=== PATIENT | female | born 1925 | race Caucasian/White ===

== ENCOUNTER 2016-06-09 14:29 | Emergency (ER) | payer OTHER ==
[~2016-06-09] VITALS: Ht 149.9 cm; Wt 81.7 kg
[~2016-06-09 14:29] MED LIST: ACETAMINOPHEN-1 EAC1 PO; ADULT LOW DOSE81 MG PO; AMOXICILLIN125 MG; ARICEPT 5 MG TAB5 MG PO; ARICEPT10 M1 PO; ASPIR 8181 MG PO; ASPIRIN EC81 M1 PO; ASPIRIN325 PO; BETIMOL10 ML OPHTHALMIC; BISACODYL SUPP10 MG RECTAL; BISOPROLOL FUM2.5 MG; CIPRO250 M1 PO; COUMADIN 1MG TAB1 M1; COUMADIN 3 MG TA3 MG NG; COUMADIN 3 MG TA3 MG PO; DEXILANT60 MG PO; DIAZEPAM 5 MG5 M1 OR; DIAZEPAM 5 MG5 M1 PO; ENEMA BOTTLE1 EACH MC; HYDROCHLOROTH12.5 M1 PO; HYDROCHLOROTHIA25 M1 PO; HYDROCHLOROTHIA25 M2 PO; HYDROCHLOROTHIA50 MG PO; HYDROXYZINE HCL25 M1 PO; IMDUR 30 MG TAB30 M1 PO; ISOSORBIDE MONO30 M1 PO; LEVOTHYROXIN0.125 M1 PO; LEVOTHYROXIN0.137 M1 PO; LIDODERM 5%1 PATC1 TRANSDERM; LIDODERM 5%1 PATCH TRANSDERM; LIDODERM TP; LIPITOR 20 MG T20 M1 PO; MACROBID 100 M100 M2 PO; MAVIK1 MG; MAVIK4 MG PO; MILK OF MA2400 MG/10 PO; MIRALAX17 GM PO; NORCO 5-325 TA1 EACH PO; NORVASC5 MG PO; OMEPRAZOLE40 MG PO; PACERONE 200 M200 M1 PO; PACERONE100 MG PO; PAXIL10 MG; PERCOCET PO; PLAVIX 75 MG TA75 M1 PO; PRILOSEC 10MG C10 MG PO; PRIMADONE OR; PRIMIDONE50 MG PO; PROLOPRIM100 MG PO; SYNTHROID125 MCG PO; TIMOLOL; TIMOLOL MA0.5 %/5 M2 OPHTHALMIC; TRANDOLAPRIL4 MG PO; TYLENOL #3 OR; VITAMIN D35000 UNIT PO
[2016-06-09] MEDS ORDERED: ACETAMINOPHEN-1 EAC1 PO (15:41)
== END 2016-06-09 16:37 | disposition home or self-care (01) ==
LOC: ER 14:29
DX: S20.212A Contusion of left front wall of thorax, initial encounter (principal); I48.91 Unspecified atrial fibrillation; Z88.8 Allergy status to other drugs, medicaments and biological substances; W07.XXXA Fall from chair, initial encounter; Y93.89 Activity, other specified; Y92.89 Other specified places as the place of occurrence of the external cause; Y99.8 Other external cause status

== ENCOUNTER 2016-07-31 14:26 | Inpatient (IN) | payer OTHER ==
[~2016-07-31] VITALS: Ht 149.9 cm; Wt 89.4 kg
--- NOTE | ~2016-07-31 | HC ---
[facility] [place] [address] CONSULTATION Name: TOM VIDALESSA Room #: 303-P [facility] IN M.R.#: [id number] Admission: 07/31/16 Attend Phys: Bubba Pop MD Discharge: 08/02/16 Date of : [birth year] Report #: [id number] THIS REPORT FOR: //name// CC: Bubba Pop DATE OF SERVICE: 08/01/2016 HISTORY OF PRESENT ILLNESS: The patient is an 89-year-old white female who lives in an assisted living facility, was independent with ambulation, could shower and dress herself. She had the onset of inability to walk with bilateral lower extremity weakness. She was thought to may have had a small TIA, especially in light of her atrial fibrillation and not able to take anticoagulation. She also has urinary tract infection, chronic recurrent. She was started on IV antibiotics. With a TIA, the orders were to resume her Plavix. We are seeing her in rehabilitation medicine consultation. PAST MEDICAL HISTORY: Atrial fibrillation, chronic low back pain. She has had prior cervical spine surgery and has had lumbar disk surgery. There is a note of some mild dementia, history of a prior CVA, hypothyroidism, hypertension, reflux. MEDICATIONS: Please see the full medication listing. ALLERGIES: NITROGLYCERIN. SOCIAL HISTORY: Nonsmoker, no recreational drugs. No alcohol. She lives in an assisted living facility and has been doing quite well as noted above with her functional mobility and ADLs. The assisted living facility staff gave her medications. There are 2 involved daughters here. REVIEW OF SYSTEMS: No complaints of chest pain, shortness of breath, abdominal discomfort. No fever, chills. No headache. No current extremity pain complaints. She does have chronic low back pain. PHYSICAL EXAMINATION: GENERAL: An 89-year-old white female in no obvious distress. The patient is alert, pleasant. VITAL SIGNS: Last recorded temperature 97.7, pulse 72, respirations 16, blood pressure 146/88. HEENT: Appeared to be benign. NEUROLOGIC: Cranial nerves grossly intact. Facies are symmetric. She has functional range of motion of both upper extremities with strength grade 4/5. DTRs are trace to 1. In her lower extremities, no focal calf swelling, functional range of motion with strength grade 4-/5. DTRs are trace to 1. Tone appeared to be intact. Proprioception appeared reasonably intact, right large toe. She is min assist with sit to stand. She did ambulate 70 feet contact [facility] [address] [place] [address] CONSULTATION Name: TOM VIDALES [place] Room #: 303-P DIS IN ..#: [id number] Admission: 07/31/16 Attend Phys: Bubba Pop MD Discharge: 08/02/16 Date of : [birth year] Report #: [id number] guard with a front-wheeled walker. ASSESSMENT: An 89-year-old white female with the following problem list: 1. Bilateral lower extremity weakness, which may have been a small transient ischemic attack or cerebrovascular accident. She has been restarted on her Plavix. She does have atrial fibrillation and is not able to take anticoagulation. 2. Urinary tract infection, which is chronic and recurrent. 3. Atrial fibrillation. Continuing on the amiodarone. 4. Hypertension. 5. Hypothyroidism. 6. History of some dementia, continuing on Aricept. 7. Past history of lumbar laminectomy with chronic low back pain. PLAN: Therapies are working with her and we will see how she progresses. We are following regarding potential acute inpatient rehabilitation as warranted. At this point, we will follow along with you and be glad to assist as indicated. Discussion was held with the patient and her 2 daughters. <ELECTRONICALLY SIGNED> By: Bryson Pool MD 08/02/16 1534 1608 1950 Bryson Pool MD /nt
--- NOTE | ~2016-07-31 | H ---
[facility] [place] [address] HISTORY AND PHYSICAL Name: TOM VIDALES [place] Room #: 303-P ADM IN M.R.#: [id number] Admission: 07/31/16 Attend Phys: Bubba Pop MD Discharge: Date of : [birth year] Report #: [id number] THIS REPORT FOR: //name// CC: Bubba Pop DATE OF SERVICE: 08/01/2016 DATE OF ADMISSION: 07/31/2016 CHIEF COMPLAINT: Weakness. HISTORY OF PRESENT ILLNESS: The patient is an 89-year-old female who was in an assisted living facility yesterday, but she states she just became unable to walk due to extremity weakness. She had been fine the day before per her daughter. She states that she just could not move her legs, it became very, very weak. She has no other focal symptoms. She denied any headaches or visual changes. No chest pain. PAST MEDICAL HISTORY: Significant for: 1. Atrial fibrillation. 2. Degenerative joint disease. 3. Back pain, chronic. 4. Mild dementia. 5. Hypothyroidism. 6. Prior CVA. 7. Hypertension. 8. Reflux. MEDICATIONS: Include primidone 100 mg b.i.d., Mavik 4 mg b.i.d., amiodarone 100 mg a day, Aricept 10 mg a day, Synthroid 137 mcg a day, Timolol drops daily, Plavix 75 mg a day, isosorbide mononitrate 30 mg a day, aspirin 81 mg a day, Colace suppository p.r.n., vitamin D3 daily, MiraLax daily, hydrochlorothiazide 25 mg a day, amlodipine 5 mg a day, Prilosec 40 mg b.i.d., Tylenol No. 3 p.r.n. pain. ALLERGIES: Are to NITROGLYCERIN and . SOCIAL HISTORY: She is a nonsmoker. No recreational drugs. No alcohol. She lives in assisted living. REVIEW OF SYSTEMS: CONSTITUTIONAL: No fever or chills. HEENT: No headaches or visual changes. CHEST: No chest pain, tightness in chest, short of breath, cough or sputum production. GASTROINTESTINAL: No nausea, vomiting, diarrhea or constipation. [facility] [address] [place] [address] HISTORY AND PHYSICAL Name: TOM VIDALES [place] Room #: 303-P [facility] IN M.R.#: [id number] Admission: 07/31/16 Attend Phys: Bubba Pop MD Discharge: Date of : [birth year] Report #: [id number] GENITOURINARY: No burning or frequency. She does have frequent UTIs. EXTREMITIES: Generalized weakness, no focal pain or swelling. SKIN: No rashes or wounds. NEUROLOGIC: No new numbness, but with generalized weakness. PHYSICAL EXAMINATION: VITAL SIGNS: Blood pressure 146/70, pulse is 90, respiratory rate 18. She is afebrile. GENERAL: She is awake, alert and reports she is feeling much better, not able to walk now. Her mucous membranes are moist. NECK: Supple without adenopathy, thyromegaly or bruits. CHEST: Clear to auscultation. CARDIOVASCULAR: Irregular rhythm at a rate of 80s. ABDOMEN: Obese, soft, no masses. Bowel sounds are active. EXTREMITIES: Pulses are intact. There is 1+ edema. SKIN: Turgor is intact. No rashes or wounds. NEUROLOGIC: She has equal strength and she has no numbness. PSYCHIATRIC: Mood is normal. DIAGNOSTIC DATA: EKG: AFib rate of 76, no ST segment changes. LABORATORY DATA: Sodium 143, potassium 5.2, chloride 109, bicarbonate 26, BUN 30, creatinine 1.6, glucose 114, calcium 8.4. Troponin 1.11. WBC is 8.9, hemoglobin 9.4, hematocrit 30.1, platelet count 343, segs 67, lymphs 19, bands 9, monocytes 10, urinalysis specific gravity of 1.020, pH 6.0 positive blood with 2 reds cells, white blood cells are moderate 16-25, many bacteria. Culture is pending. Chest x-ray shows no acute process. ASSESSMENT: 1. Generalized debility seems to be improved already. This may have been a small TIA, especially in light of her AFib and not able to take anticoagulation. 2. Urinary tract infection, chronic recurrent. We are going to start her on IV antibiotics for that. We will get a culture. We will start PT and OT for the weakness, likely we will need skilled placement as well. 3. Hypertension. Resume home meds. 4. With a TIA, resume Plavix. 5. Hypothyroidism, resume Synthroid. 6. Dementia, resume Aricept. 7. Atrial fibrillation. Continue the amiodarone. By: 0748 1103 Bubba Pop MD /nt
--- NOTE | ~2016-07-31 | EKG ---
[address] [address] ELECTROCARDIOGRAM REPORT Name: SOBEIDATOM SHERIF Room #: 303-P ADM IN M.R.#: [id number] Admission: 07/31/16 Attend Phys: Bubba Pop MD Discharge: Date of : [birth year] Report #: [id number] THIS REPORT FOR: //name// [facility] ED Test Date: 2016-07-31 Test Time: 15:33:36 Pat Name: TOM VIDALES Department: Room: [facility] Gender: F Cutch Cleaner: jose de jesus : 1925 Requested By: Efren Gonzalez Order Number: [id number] MD: Brent Van Measurements Intervals Garrett Rate: 76 P: [place]: QRS: -48 QRSD: 87 T: 74 QT: 403 QTc: 454 Interpretive Statements Atrial fibrillation Anterolateral infarct, age indeterminate Compared to ECG 12/20/2015 12:23:27 No significant changes Electronically Signed On 08-02-2016 9:46:37 CDT by Brent Van [email or web address] <ELECTRONICALLY SIGNED> By: Brent Van MD 08/02/16 0946 1533 153 Brent Van MD /SADE
[2016-07-31 14:27] VITALS: BP 146/70
[2016-07-31 15:39] LABS: ABSOLUTE NEUTROPHILS 5.7 thou/uL (1.4-8.2); BASOPHILS 1.7 % (0.0-2.0); EOSINOPHILS 1.6 % (0.0-3.0); HEMATOCRIT 30.1 % (37.0-47.0); HEMOGLOBIN 9.4 gm/dL (12.0-15.0); MCH 24.9 pg (26.0-34.0); MCHC 31.4 g/dL (28.0-37.0); MCV 79.2 fL (80.0-100.0); POLYS 67.7 % (36.0-66.0); WBC 8.9 thou/uL (4.0-11.0)
[2016-07-31 15:41] LABS: MANUAL DIFF NO
[2016-07-31 15:45] LABS: CALCIUM 8.4 mg/dL (8.5-10.1); CREATININE 1.6 mg/dL (0.6-1.0); POTASSIUM 5.2 mmol/L (3.5-5.1)
[2016-07-31 15:53] LABS: TROPONIN-I 0.11 ng/mL (<0.04-0.07)
[2016-07-31 15:57] LABS: PLATELET COUNT 343 thou/uL (150-400)
[2016-07-31 16:21] LABS: URINE BILIRUBIN NEGATIVE (Negative); URINE BLOOD TRACE (Negative); URINE COLOR YELLOW; URINE GLUCOSE-RANDOM* NEGATIVE (Negative); URINE KETONES NEGATIVE (Negative); URINE LEUKOCYTES-REFLEX 1+ (Negative); URINE PROTEIN (DIPSTICK) NEGATIVE (Negative); URINE UROBILINOGEN 0.2 E.U./dl (0.2-1.0)
[2016-07-31 16:33] LABS: SQUAMOUS >10 Many /LPF (0-3)
[2016-07-31 16:34] LABS: CASTS None Seen /LPF (None Seen); CRYSTALS None Seen /LPF (None Seen); URINE RBC 0-2 Rare /HPF (0-2)
[2016-07-31] MEDS ORDERED: ACETAMINOPHEN-1 EAC1 PO (17:24)
[2016-07-31 18:07] VITALS: BP 142/66
[2016-07-31 18:21] VITALS: BP 149/80
[2016-07-31 20:00] VITALS: BP 143/77
[2016-08-01] VITALS: BP 142/85
[2016-08-01 04:00] VITALS: BP 169/94
[2016-08-01 07:33] VITALS: BP 137/74
[2016-08-01 15:36] VITALS: BP 146/88
[2016-08-01 20:00] VITALS: BP 151/85
[2016-08-02 04:00] VITALS: BP 148/90
[2016-08-02 07:27] VITALS: BP 124/68
[2016-08-02 09:57] VITALS: BP 124/68
== END 2016-08-02 13:30 | DRG 69 ==
LOC: ER 14:26 → 3N 17:15 → EROBS 17:15 → 3N 18:29
PROVIDERS: Emergency Medicine
DX: G45.9 Transient cerebral ischemic attack, unspecified (principal); N39.0 Urinary tract infection, site not specified; I48.91 Unspecified atrial fibrillation; Z96.652 Presence of left artificial knee joint; G89.29 Other chronic pain; M54.5 Low back pain; F03.90 Unspecified dementia, unspecified severity, without behavioral disturbance, psychotic disturbance, mood disturbance, and anxiety; E03.9 Hypothyroidism, unspecified; I10 Essential (primary) hypertension; K21.9 Gastro-esophageal reflux disease without esophagitis; Z90.49 Acquired absence of other specified parts of digestive tract; Z90.710 Acquired absence of both cervix and uterus; Z90.722 Acquired absence of ovaries, bilateral; Z88.1 Allergy status to other antibiotic agents; Z86.73 Personal history of transient ischemic attack (TIA), and cerebral infarction without residual deficits; Z88.8 Allergy status to other drugs, medicaments and biological substances

== ENCOUNTER 2016-08-02 11:54 | Inpatient (IN) | payer OTHER ==
[~2016-08-02] VITALS: Ht 149.9 cm; Wt 87.5 kg
--- NOTE | ~2016-08-02 | H ---
[facility] [place] [address] [place] [address] HISTORY AND PHYSICAL Name: TOM VIDALES [place] Room #: 510-P [facility] IN M.R.#: [id number] Admission: 08/02/16 Attend Phys: Bryson Pool MD Discharge: 08/07/16 Date of : [birth year] Report #: [id number] THIS REPORT FOR: //name// CC: Bryson Pop DATE OF SERVICE: 08/02/2016 HISTORY OF PRESENT ILLNESS: The patient is an 89-year-old white female who lives in an assisted living facility. She was independent with ambulation, could shower and dress herself. She had the onset of inability to walk with bilateral lower extremity weakness. She was thought to maybe have had a small TIA, especially in light of her atrial fibrillation and not able to take anticoagulation. With the TIA, orders were to resume her Plavix. She also has a urinary tract infection, chronic recurrent and was started on IV antibiotics. She was noted to have significant functional mobility and ADL deficits and has been admitted for acute in-hospital inpatient rehabilitation. PAST MEDICAL HISTORY: Includes atrial fibrillation, chronic low back pain. She has had prior cervical spine surgery and has had lumbar disk surgery. There is a note of some mild dementia, history of a prior CVA, hypothyroidism, hypertension and reflux. MEDICATIONS: Please see the full medication listing. Each medication was individually reconciled upon admission. The medication list includes her medications plus vitamins, supplements, [id number], etc. ALLERGIES: NITROGLYCERIN. SOCIAL HISTORY: Nonsmoker, no recreational drugs. No alcohol. She lives in an assisted living facility and has been doing quite well as noted above with her functional mobility and ADLs. The assisted living facility staff gave her her medications. There are 2 involved daughters. REVIEW OF SYSTEMS: No complaints of chest pain, shortness of breath or abdominal discomfort. No fever or chills. She did not have any current pain complaints. She does have the chronic low back pain which is premorbid. PHYSICAL EXAMINATION: GENERAL: An 89-year-old white female in no obvious distress. She is alert and pleasant. VITAL SIGNS: Last recorded vitals, these are being taken on her admission to rehabilitation. HEENT: Appeared to be benign. CHEST: Sounded clear to auscultation. CARDIOVASCULAR: Regular rate and rhythm. [facility] [address] [place] [address] HISTORY AND PHYSICAL Name: TOM VIDALES [place] Room #: 510-P [facility] IN M.R.#: [id number] Admission: 08/02/16 Attend Phys: Bryson Pool MD Discharge: 08/07/16 Date of : [birth year] Report #: [id number] ABDOMEN: Bowel sounds positive, nontender. GENITOURINARY AND RECTAL: Deferred. NEUROLOGIC: Cranial nerves are grossly intact. Facies are symmetric. EXTREMITIES: She has functional range of motion of both upper extremities with strength grade 4/5. DTRs are trace to 1 in her lower extremities, no focal calf swelling. Functional range of motion with strength grade 4-/5. DTRs are trace to 1. Tone appeared to be intact. Proprioception appeared reasonably intact right large toe. She does need some assistance with basic functional mobility and ADLs, although she is starting to walk better with the 4-wheeled walker and appears to need less assistance than she needed prior to rehabilitation admission. ASSESSMENT: An 89-year-old white female with the following problem list: 1. Bilateral lower extremity weakness. This could have been a small transient ischemic attack per her attending physician. She was restarted on her Plavix. She does have atrial fibrillation and is not able to take full anticoagulation. 2. Urinary tract infection, chronic and recurrent. 3. Atrial fibrillation, continuing on amiodarone. 4. Hypertension. 5. Hypothyroidism. 6. History of some dementia, continuing on Aricept. 7. Past history of lumbar laminectomy with chronic low back pain. PLAN: The patient is admitted for an acute in-hospital inpatient rehabilitation stay. From a postadmission physician evaluation perspective, there are no relevant changes since the preadmission screening. Please see the above review of prior and current medical and functional conditions and comorbidities. Please see the patient's prior and current functional status. As far as risk of complication, she does have multiple medical comorbidities as noted above. Initial plan of care involves the interdisciplinary acute inpatient rehabilitation program with the goal of maximizing the patient's functional independence, so that she can hopefully return back to her prior living situation. Measurable functional goals would be for her to become modified independent with transfers, mobility and ADLs to the point where she can return back to her assisted living facility. Prognosis is reasonably good with estimated length of stay probably fairly short around 5-10 days pending progress. Potential barriers would include her multiple medical comorbidities and decreased functional status. The patient meets diagnostic criteria for an acute in-hospital inpatient rehabilitation stay. She meets medical necessity criteria and we will have the sap consultant physicians continue to follow while she is on rehabilitation. She [facility] [address] [place] [address] HISTORY AND PHYSICAL Name: TOM VIDALES [place] Room #: 510-P DIS IN M.R.#: [id number] Admission: 08/02/16 Attend Phys: Bryson Pool MD Discharge: 08/07/16 Date of : [birth year] Report #: [id number] does have the tolerance for an acute inpatient rehabilitation stay and has appropriate discharge goals back to the home setting. <ELECTRONICALLY SIGNED> By: Bryson Pool MD 08/08/16 1157 1426 1651 Bryson Pool MD /nt
--- NOTE | ~2016-08-02 | HC ---
[facility] [place] [address] CONSULTATION Name: TOM VIDALESSA Room #: 510-P [facility] IN M.R.#: [id number] Admission: 08/02/16 Attend Phys: Bryson Pool MD Discharge: 08/07/16 Date of : [birth year] Report #: [id number] THIS REPORT FOR: //name// CC: Bryson Pop DATE OF SERVICE: 08/05/2016 NEUROBEHAVIORAL STATUS EXAMINATION ATTENDING PHYSICIAN: Bryson Pool M.D. AEROSPACE QUALITY ENGINEER: Bubba Perdomo, PhD. CLINICAL PRESENTATION: The patient is an 89-year-old female who was living in an assisted living facility when she had a sudden onset of bilateral weakness in her legs causing for the fall to the floor. The patient did not strike her head and just lean back against the wall to slide to the ground. PAST MEDICAL HISTORY: Includes atrial fibrillation, chronic low back pain. She has had prior cervical spine and a lumbar disk surgery. She also carries diagnoses of urinary tract infection, atrial fibrillation, hypertension, hypothyroidism, lumbar laminectomy with chronic low back pain and a history of dementia. A complete description of her medical condition and history can be found in her medical record. Neuropsychological consultation was requested to provide assistance in the assessment of cognitive and emotional status and to provide recommendations and services. Prior to this most recent event, she stated that she was living in an assisted living facility. The patient had 8 children. She reports three children have . Her second in 2004. She is a high school graduate. 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 TECHNIQUES UTILIZED: Clinical interview, review of medical records, staff consultation and behavioral observation, mini mental status exam 2 standard version and clock drawing. EXAMINATION FINDINGS: The patient was alert and cooperative with the assessment. She accurately described the reason for her hospitalization. There is no evidence of aphasia. There is no report of auditory or visual hallucinations. Her mood is anxious. She indicates a desire to return to her assisted living facility as soon as possible. Her mood was irritable and she lacked insight into the need for her continued hospitalization. She describes her symptoms to include difficulty with sleep [facility] [address] [place] [address] CONSULTATION Name: TOM VIDALES [place] Room #: 510-P DIS IN M.R.#: [id number] Admission: 08/02/16 Attend Phys: Bryson Pool MD Discharge: 08/07/16 Date of : [birth year] Report #: [id number] and appetite and short-term memory. Her performance on the MMSE 2 brief version is in the mild range of impairment with a raw score of 13 of 16 and T score of 38. She was 3/3 for initial registration, 5/5 for orientation to time and 5/[address]. She was 0/3 for immediate recall of 3 items after a brief time delay and distraction. Her performance improved on the standard version of the MMSE 2 to a raw score of 25 and a T score of 44. She was 4/5 for serial 7's. The patient had difficulty in copying a simple geometric design. Clock drawing suggests some mild impairment in ability to set the hands at a designated time, suggesting an impairment with care home semantic memory. 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 RECOMMENDATIONS: Continued reassurance about her improvement in functioning and increased ability to manage with increased degree of independence. The use of relaxation techniques and use of visual aides, e.g., calendar, to assist in orientation. Most likely the change in her location and routine has contributed to the increased anxiety at this time. Thank you very much for allowing me to provide the consultation on this patient. <ELECTRONICALLY SIGNED> By: Bubba Perdomo, PhD 08/09/16 1806 1628 0014 Bubba Perdomo, PhD /nt
--- NOTE | ~2016-08-02 | PLAN ---
[facility] [place] [address] [place] [address] REHAB UNIT PLAN OF CARE Name: TOM VIDALES [place] Room #: 510-P [facility] IN M.R.#: [id number] Admission: 08/02/16 Attend Phys: Bryson Pool MD Discharge: 08/07/16 Date of : [birth year] Report #: [id number] THIS REPORT FOR: //name// CC: Bryson Pop DATE OF SERVICE: 08/04/2016 The patient is seen back today in followup. She is in no distress. Last recorded temperature 98.4, pulse 72, respirations 18, blood pressure 145/64. The patient is alert, pleasant. HEENT appeared to be benign. No focal calf swelling. Lower extremity strength does appear to be improved. Transfers have improved and upon discussion with physical therapy, she is now ready to be modified independent in the room with the walker. She has ambulated up to 300 feet contact guard with the front-wheeled walker. In occupational therapy, lower body dressing has been at a contact guard assist level. We are working in improving her strength and endurance. ASSESSMENT: 1. Bilateral lower extremity weakness. Question transient ischemic attack. 2. History of atrial fibrillation, not able to take full anticoagulation. Was restarted on her Plavix. 3. Urinary tract infection chronic and recurrent. 4. Atrial fibrillation, continuing on amiodarone. 5. Hypertension. 6. Hypothyroidism. 7. Some dementia premorbidly continuing on Aricept. 8. Past history of lumbar laminectomy with chronic low back pain. PLAN: The overall plan of care is based on the preadmission screen, post-admission physician evaluation and information garnered from therapy assessments. 1. Estimated length of stay will be short. I discussed the patient with the therapy team today. She is ready to be modified independent in the room today and we will be planning on her discharging back to her assisted living facility on Sunday. She is to work further in improving strength and endurance as well as functional ADLs, which she was doing premorbidly herself. 2. Medical prognosis is reasonably good. 3. Anticipated interventions includes the interdisciplinary acute inpatient rehabilitation program with PT and OT, rehab nursing assisting regarding medication management, skin care prophylaxis, bowel and bladder issues and nursing education. The otm consultant physicians are asked to continue following. We will have the interdisciplinary acute inpatient rehab team involved. 4. Anticipated functional outcomes would be for the patient to become modified independent with transfers, mobility and ADL[place] [address] REHAB UNIT PLAN OF CARE Name: TOM VIDALES [place] Room #: 510-P [facility] IN .R.#: [id number] Admission: 08/02/16 Attend Phys: Bryson Pool MD Discharge: 08/07/16 Date of : [birth year] Report #: [id number] 5. Discharge destination would be back to the home setting. This is in an assisted living facility. 6. Expected therapy by discipline includes PT and OT 1-1/2 hours per day each 5 days a week throughout the duration of the acute inpatient rehabilitation stay. Plan is for discharge home on Sunday to her assisted living facility. <ELECTRONICALLY SIGNED> By: Bryson Pool MD 08/08/16 1157 0942 1213 Bryson Pool MD /nt
[2016-08-02 14:34] VITALS: BP 114/49
[2016-08-03 05:25] VITALS: BP 156/82
[2016-08-03 05:42] LABS: HEMATOCRIT 33.3 % (37.0-47.0); HEMOGLOBIN 10.5 gm/dL (12.0-15.0); MCH 24.8 pg (26.0-34.0); MCHC 31.6 g/dL (28.0-37.0); MCV 78.5 fL (80.0-100.0); RBC 4.24 mil/uL (4.20-5.00); RDW 17.5 % (10.5-14.5); WBC 6.8 thou/uL (4.0-11.0)
[2016-08-03 05:53] LABS: CALCIUM 8.8 mg/dL (8.5-10.1); CREATININE 1.4 mg/dL (0.6-1.0); POTASSIUM 3.9 mmol/L (3.5-5.1)
[2016-08-03 16:11] VITALS: BP 99/57
[2016-08-04 05:42] VITALS: BP 145/64
[2016-08-04 10:00] VITALS: BP 107/56
[2016-08-04 15:54] VITALS: BP 98/62
[2016-08-04 16:00] VITALS: BP 104/73
[2016-08-05 05:34] VITALS: BP 146/65
[2016-08-05 09:21] VITALS: BP 129/72
[2016-08-05 16:26] VITALS: BP 101/54
[2016-08-06 04:28] VITALS: BP 144/74
[2016-08-06 15:44] VITALS: BP 104/60
[2016-08-06 21:00] VITALS: BP 120/60
[2016-08-07 03:55] VITALS: BP 155/84
[2016-08-07 10:08] VITALS: BP 118/71
[2016-08-07 12:08] VITALS: BP 118/71
== END 2016-08-07 15:30 | disposition home health service (06) | DRG 69 ==
PROVIDERS: Physical Medicine & Rehabilitation
DX: G45.9 Transient cerebral ischemic attack, unspecified (principal); N39.0 Urinary tract infection, site not specified; R53.1 Weakness; I48.91 Unspecified atrial fibrillation; I10 Essential (primary) hypertension; E03.9 Hypothyroidism, unspecified; F03.90 Unspecified dementia, unspecified severity, without behavioral disturbance, psychotic disturbance, mood disturbance, and anxiety; F43.22 Adjustment disorder with anxiety; G89.29 Other chronic pain; M54.5 Low back pain; K21.9 Gastro-esophageal reflux disease without esophagitis; R53.81 Other malaise; M19.90 Unspecified osteoarthritis, unspecified site; R25.1 Tremor, unspecified; Z86.73 Personal history of transient ischemic attack (TIA), and cerebral infarction without residual deficits; Z79.82 Long term (current) use of aspirin; Z79.899 Other long term (current) drug therapy; Z88.8 Allergy status to other drugs, medicaments and biological substances
CPT/HCPCS: 10112